=== PATIENT | female | born 1965 | race Hispanic/Latino ===

== ENCOUNTER 2018-03-24 16:26 | Outpatient (CLI) | payer BC ==
--- NOTE | 2018-03-24 18:13 | RAD ---
TWO VIEWS LUMBAR SPINE WITH WEIGHTBEARING: Date: 03-24-18 History: Inflammatory spinal arthropathy. Back pain for many years. Comparison: None available. FINDINGS: There are five non-rib bearing lumbar type vertebral bodies. Vertebral body heights and vertebral dis c spaces are within normal limits. No fracture or subluxation is seen involving the lumbar spine. No other osseous abnormality is identified. IMPRESSION: No fracture or subluxation involving the lumbar spine. POS: [facility]
== END 2018-03-24 16:27 | disposition home or self-care (01) ==
LOC: BICRAD 16:26
PROVIDERS: ATTEND Internal Medicine Rheumatology
DX: M46.99 Unspecified inflammatory spondylopathy, multiple sites in spine (principal)
CPT/HCPCS: 72100

== ENCOUNTER 2018-04-14 15:54 | Outpatient (CLI) | payer BC ==
--- NOTE | 2018-04-14 18:03 | RAD ---
CERVICAL SPINE 5 VIEWS: Date: 04/14/18 HISTORY: Inflammatory spondylopathy. Patient reports a history of rheumatoid arthritis. FINDINGS: Frontal, lateral, open-mouth odontoid, and bilateral oblique views provided. There is mild degenerative change at the atlantoaxial interspace. No prevertebral soft tissue swellin g. Vertebral body height and alignment appear normal on the lateral examination. The oblique imaging demonstrates no significant osteophyte extension into the neural foramina on either side at any level . The open-mouth odontoid view demonstrates a normal appearing dens and C1-2 articulation. Mild facet and uncovertebral osteophyte formation noted bilaterally at C5-6, left greater than right. IMPRESSION: No acute findings. POS: [facility]
== END 2018-04-14 15:55 | disposition home or self-care (01) ==
LOC: BICRAD 15:54
PROVIDERS: ATTEND Internal Medicine Rheumatology
DX: M46.99 Unspecified inflammatory spondylopathy, multiple sites in spine (principal)
CPT/HCPCS: 72050